=== PATIENT | female | born 1980 | race Hispanic/Latino ===

== ENCOUNTER 2016-11-13 00:05 | Emergency (ER) | payer MEDICAID ==
[2016-11-13 00:26] VITALS: BMI 35.4
[2016-11-13 00:36] VITALS: BP 105/82; PULSE 92; TEMP 98.3
[2016-11-13] MEDS ORDERED: TDAP Vaccine 0.5 mL Syr IM ONE (00:49)
[2016-11-13] MEDS ORDERED: Amoxicillin-Clav 875-125 mg Tab PO STA (00:49)
--- NOTE | 2016-11-13 00:49 | ED PDOC ---
Arrival/HPI - General Chief Complaint: Bite Time Seen by Provider: 11/13/16 00:40 Historian: Patient - History of Present Illness Narrative History of Present Illness (Text): 11/13/16 00:40 This 36 yo female presents to this ED c/o dog bite x [employer]. Patient stated he was arguing with his , when dog got in between her and . She was bit by her dog left inner arm, and left thigh. She also noted superficial small abrasion b/l hand. last tetanus is [place]. Dog is UTD rabies shot. Denies other complains. Denies allergies Time/Duration: Prior to Arrival Context: Home Past Medical History - Provider Review Nursing Documentation Reviewed: Yes - Cardiac Hx Cardiac Disorders: No - Pulmonary Hx Respiratory Disorders: Yes - Neurological Hx Neurological Disorder: No - HEENT Hx HEENT Disorder: No - Renal Hx Renal Disorder: No - Endocrine/Metabolic Hx Endocrine Disorders: No - Hematological/Oncological Hx Blood Disorders: No - Integumentary Hx Dermatological Disorder: No - Musculoskeletal/Rheumatological Hx Musculoskeletal Disorders: No - Gastrointestinal Hx Gastrointestinal Disorders: No - Genitourinary/Gynecological Hx Genitourinary Disorders: No - Psychiatric Hx Psychophysiologic Disorder: No Hx Substance Use: No - Surgical History Other/Comment: left ectopic Family/Social History - Physician Review Nursing Documentation Reviewed: Yes Family/Social History: No Known Family HX Smoking Status: Light Smoker < 10 Cigarettes Daily Hx Alcohol Use: No Hx Substance Use: No Allergies/Home Meds Allergies/Adverse Reactions: Allergies No Known Allergies Allergy (Verified 11/13/16 00:24) Home Medications: Home Meds Medication Instructions Recorded Confirmed Albuterol HFA [Ventolin HFA 90 1 inhaler IH PRN PRN 11/13/16 11/13/16 mcg/actuation (8 g)] Review of Systems - Review of Systems Constitutional: Normal. absent: Fatigue, Weight Change, Fevers Eyes: Normal ENT: Normal Respiratory: Normal. absent: SOB, Cough Cardiovascular: Normal. absent: Chest Pain Gastrointestinal: Normal Genitourinary Female: Normal Musculoskeletal: Normal Skin: Other (Multiple dog bites) Neurological: Normal Endocrine: Normal Hemo/Lymphatic: Normal Psychiatric: Normal Physical Exam Vital Signs Temp Pulse Resp BP Pulse Ox 11/13/16 00:35 98.3 F 92 H 18 105/82 99 Temperature: Afebrile Blood Pressure: Normal Pulse: Regular Respiratory Rate: Normal Appearance: Positive for: Well-Appearing, Non-Toxic, Comfortable Pain Distress: None Mental Status: Positive for: Alert and Oriented X 3 - Systems Exam Head: Present: Atraumatic, Normocephalic Pupils: Present: PERRL Extroacular Muscles: Present: EOMI Conjunctiva: Present: Normal Mouth: Present: Moist Mucous Membranes Neck: Present: Normal Range of Motion Respiratory/Chest: Present: Clear to Auscultation, Good Air Exchange. No: Respiratory Distress, Accessory Muscle Use Cardiovascular: Present: Regular Rate and Rhythm, Normal S1, S2. No: Murmurs Abdomen: Present: Normal Bowel Sounds. No: Tenderness, Distention, Peritoneal Signs Back: Present: Normal Inspection. No: CVA Tenderness Upper Extremity: Present: Normal ROM, NORMAL PULSES, Neurovascularly Intact, Capillary Refill < 2s, Other (Superfial abrasion, and puncture wound left inner arm. very small abrasion, superficial b/l hands). No: Cyanosis, Edema Lower Extremity: Present: Normal Inspection, NORMAL PULSES, Normal ROM, Neurovascularly Intact, Capillary Refill < 2 s, Other (2 smal puncture wounds, with ecchymotic changes left thigh. no bleeding ). No: Edema, CALF TENDERNESS Neurological: Present: GCS=15, CN II-XII Intact, Speech Normal, Motor Func Grossly Intact, Normal Sensory Function, Normal Cerebellar Funct, Gait Normal Skin: Present: Warm, Dry, Normal Color. No: Rashes Psychiatric: Present: Alert, Oriented x 3 Medical Decision Making ED Course and Treatment: 11/13/16 00:53 Re-evaluation. Patient feels better. Discussed results and plan with patient who expresses understanding. All questions answered and there is agreement with the plan to discharge home with instructions. Patient stable for discharge. Return if symptoms persist or worsen Re-evaluation Time: 00:53 Reassessment Condition: Re-examined, Improved Disposition/Present on Arrival - Present on Arrival Any Indicators Present on Arrival: No History of DVT/PE: No History of Uncontrolled Diabetes: No Urinary Catheter: No History of Decub. Ulcer: No History Surgical Site Infection Following: None - Disposition Have Diagnosis and Disposition been Completed?: Yes Diagnosis: Dog bite Disposition: HOME/ ROUTINE Disposition Time: 00:53 Patient Plan: Discharge Condition: GOOD Discharge Instructions (ExitCare): Animal Bite (ED) Additional Instructions: Call private doctor for follow up visit and wound recheck in 2-3 days. Clean wound with doap and water daily, and apply topical OTC antibiotic ointment, and cover with gauze. return to emergency if wound becomes painful, redness or discharge Prescriptions: Amoxicillin/Clavulanate [Augmentin 875 MG-125 MG] 1 tab PO BID #19 tab Ibuprofen [Motrin] 600 mg PO Q8 PRN #20 tab PRN Reason: Pain, Severe (8-10) Referrals: [facility] [Outside] - Follow up with primary Forms: WORK NOTE
[2016-11-13 01:31] VITALS: RESP 16; O2SAT 98
== END 2016-11-13 01:29 | disposition home or self-care (01) ==
LOC: ED 00:05
DX: S41.132A Puncture wound without foreign body of left upper arm, initial encounter (principal); W54.0XXA Bitten by dog, initial encounter; Z23 Encounter for immunization